=== PATIENT | male | born 1980 | race Caucasian/White ===

== ENCOUNTER → 2016-10-17 | Outpatient (CLI) | payer MEDICARE ==
[~2016-10-17] MED LIST: CHOL10003 PO; HYDR-3812 PO; INSULIN PUMP SQ; LISI10TA2 PO; MAGN400T39 PO; OMG1KC PO
--- OUTSIDE RECORDS SUMMARY | 2016-10-17 15:57 | XMS REPORT | Continuity of Care Document ---
Author Author [facility] Organization [facility] Address Unknown Phone Unavailable Care Team Providers Care Marine Resource Economist Name Role Phone ABBIE ARROYO DO PCP Insurance Providers Payer Name Policy Number Subscriber Name Relationship [employer] [id number] Jeff Moore Ii 18 Self / Same As Patient Advance Directives Directive Response Recorded Date/Time Advance Directives No 03/08/16 5:15pm Organ Donor No 03/08/16 5:15pm Resuscitation Status Full Code 03/08/16 5:15pm Chief Complaint and Reason for Visit Chief Complaint Glucose Problems Reason for Visit Heat exhaustion Volume depletion Problems Active Problems Medical Problem Onset Date Status Heat exhaustion Unknown Acute Volume depletion Unknown Acute Medications Current Home Medications Medication Dose Units Route Directions Days/Qty Instructions Start Date Lisinopril 10 Mg 10 Mg Oral Daily 09/07/15 Magnesium Oxide 400 Mg 400 Mg Oral Daily 09/07/15 [place] 3 Polyunsat Fatty Acids 1,000 Mg 1,000 Mg Oral Daily 09/07/15 Cholecalciferol (Vitamin D3) 1,000 Unit 1,000 Unit Oral Daily [Insulin Pump] 0 Sub-Q As Directed 09/07/15 Hydrocodone/Acetaminophen 1 Each 1 Tab Oral Every 4HRS as needed for 30 09/10/15 Social History Social History Problem Response Recorded Date/Time Alcohol Use Rarely Uses 03/08/2016 5:15pm Recreational Drug Use No 03/08/2016 5:15pm Recent Foreign Travel No 03/08/2016 5:06pm Recent Infectious Disease Exposure No 03/08/2016 5:06pm Hospitalization with Isolation Denies 03/08/2016 5:06pm Smoking Status Never a Smoker 03/08/2016 5:15pm Do you dip or chew tobacco? Yes 03/08/2016 5:15pm Query Response Start Date Stop Date Smoking Status Never a Smoker Hospital Discharge Instructions No hospital discharge instructions. Plan of Care Discharge Date 03/08/16 6:50pm Disposition 01 HOME, SELF-CARE Condition at Discharge Improved Instructions/Education Provided Dehydration (ED) Heat Exhaustion (ED) Forms Provided Work Release Form Prescriptions See Medication Section Referrals ABBIE ARROYO DO - Primary Care Physician Additional Instructions/Education 1. Drink plenty of fluids 2. Follow up with Dr Arroyo this week. Keep a close eye on your blood sugars checking them at least 3 times per day. 3. Return to ER for any concerns Functional Status No functional status results. Allergies, Adverse Reactions, Alerts No known allergies. Immunizations Name Given Type Date of Influenza Vaccine 07/13/15 Historical Vital Signs Acute Vital Signs Vital Response Date/Time Temperature (Fahrenheit) 98 degrees F (97.6 - 99.5) 03/08/2016 5:06pm Temperature (Calculated Celsius) 36.6696 degrees C (36.4 - 37.5) 03/08/2016 5 :06pm Temperature Source Temporal 03/08/2016 5:06pm Pulse Rate (adult) 76 bpm (60 - 90) 03/08/2016 5:06pm Respiratory Rate 18 bpm (12 - 24) 03/08/2016 5:06pm O2 Sat by Pulse Oximetry 100 % (88 - 100) 03/08/2016 5:06pm Blood Pressure 103/65 mm Hg 03/08/2016 5:06pm Blood Pressure Mean 78 mm Hg 03/08/2016 5:06pm Pain Numeric Pain Scale 0-No Pain 03/08/2016 5:06pm Height (Feet) 5 feet 03/08/2016 5:06pm Height (Inches) 6 inches 03/08/2016 5:06pm Height (Calculated Centimeters) 167.919438 cm 03/08/2016 5:06pm Weight (Pounds) 140 pounds 03/08/2016 5:06pm Weight (Calculated Kilograms) 63.390418 kilograms 03/08/2016 5:06pm Height 5 ft 6 in Weight 140 lb Body Mass Index 22.6 kg/m^2 Results Laboratory Results Test Name Result Units Flags Reference Collection Date/Time Result Date/ Time Comments White Blood Count 8.5 10^3/uL 4.3-11.0 03/08/2016 5:pm 03/08/2016 5: 35pm Red Blood Count 4.88 10^6/uL 4.35-5.85 03/08/2016 5:03/08/2016 5: 35pm Hemoglobin 15.4 G/DL 13.3-17.7 03/08/2016 5:03/08/2016 5:35pm Hematocrit 43 % 40-54 03/08/2016 5:03/08/2016 5:35pm Mean Corpuscular Volume 89 FL 80-99 03/08/2016 5:03/08/2016 5: 35pm Mean Corpuscular Hemoglobin 32 PG 25-34 03/08/2016 5:03/08/2016 5: 35pm Mean Corpuscular Hemoglobin Concent 36 G/DL 32-36 03/08/2016 5: 5:35pm Red Cell Distribution Width 12.6 % 10.0-14.5 03/08/2016 5:2015 5:35pm Platelet Count 371 10^3/uL 130-400 03/08/2016 5:03/08/2016 5:35pm Mean Platelet Volume 9.2 FL 7.4-10.4 03/08/2016 5:03/08/2016 5: 35pm Neutrophils (%) (Auto) 68 % 42-75 03/08/2016 5:03/08/2016 5:35pm Lymphocytes (%) (Auto) 24 % 12-44 03/08/2016 5:03/08/2016 5:35pm Monocytes (%) (Auto) 8 % 0-12 03/08/2016 5:03/08/2016 5:35pm Eosinophils (%) (Auto) 0 % 0-10 03/08/2016 5:03/08/2016 5:35pm Basophils (%) (Auto) 1 % 0-10 03/08/2016 5:24pm 03/08/2016 5:35pm Neutrophils # (Auto) 5.7 X 10^3 1.8-7.8 03/08/2016 5:24pm 03/08/2016 5: 35pm Lymphocytes # (Auto) 2.0 X 10^3 1.0-4.0 03/08/2016 5:24pm 03/08/2016 5: 35pm Monocytes # (Auto) 0.6 X 10^3 0.0-1.0 03/08/2016 5:24pm 03/08/2016 5: 35pm Eosinophils # (Auto) 0.0 10^3/uL 0.0-0.3 03/08/2016 5:24pm 03/08/2016 5 :35pm Basophils # (Auto) 0.0 10^3/uL 0.0-0.1 03/08/2016 5:24pm 03/08/2016 5: 35pm Urine Color YELLOW 03/08/2016 6:00pm 03/08/2016 6:26pm Urine Clarity CLEAR 03/08/2016 6:00pm 03/08/2016 6:26pm Urine pH 7 5-9 03/08/2016 6:00pm 03/08/2016 6:26pm Urine Specific [place] 1.010 * 1.016-1.022 03/08/2016 6:00pm 2015 6:26pm Urine Protein NEGATIVE NEGATIVE 03/08/2016 6:00pm 03/08/2016 6:26pm Urine Glucose (UA) 4+ * NEGATIVE 03/08/2016 6:00pm 03/08/2016 6:26pm Urine RBC (Auto) NEGATIVE NEGATIVE 03/08/2016 6:00pm 03/08/2016 6: 26pm Urine Ketones NEGATIVE NEGATIVE 03/08/2016 6:00pm 03/08/2016 6:26pm Urine Nitrite NEGATIVE NEGATIVE 03/08/2016 6:00pm 03/08/2016 6:26pm Urine Bilirubin NEGATIVE NEGATIVE 03/08/2016 6:00pm 03/08/2016 6: 26pm Urine Urobilinogen NORMAL MG/DL NORMAL 03/08/2016 6:00pm 03/08/2016 6: 26pm Urine Leukocyte Esterase NEGATIVE NEGATIVE 03/08/2016 6:00pm 2015 6:26pm Urine RBC NONE /HPF 03/08/2016 6:00pm 03/08/2016 6:26pm Urine WBC NONE /HPF 03/08/2016 6:00pm 03/08/2016 6:26pm Urine Bacteria NONE /HPF 03/08/2016 6:00pm 03/08/2016 6:26pm Urine Squamous Epithelial Cells 0-2 /HPF 03/08/2016 6:00pm 2015 6:26pm Urine Crystals NONE /LPF 03/08/2016 6:00pm 03/08/2016 6:26pm Urine Casts NONE /LPF 03/08/2016 6:00pm 03/08/2016 6:26pm Urine Mucus NEGATIVE /F 03/08/2016 6:00pm 03/08/2016 6:26pm Urine Culture Indicated NO 03/08/2016 6:00pm 03/08/2016 6:26pm Sodium Level 138 MMOL/L 135-145 03/08/2016 5:24pm 03/08/2016 6:05pm Potassium Level 4.0 MMOL/L 3.6-5.0 03/08/2016 5:24pm 03/08/2016 6:05pm Chloride Level 103 MMOL/L 98-107 03/08/2016 5:24pm 03/08/2016 6:05pm Carbon Dioxide Level 27 MMOL/L 21-32 03/08/2016 5:pm 03/08/2016 6: 05pm Anion Gap 8 MMOL/L 5-14 03/08/2016 5:24pm 03/08/2016 6:05pm Blood Urea Nitrogen 14 MG/DL 7-18 03/08/2016 5:pm 03/08/2016 6:05pm Creatinine 1.77 MG/DL H 0.60-1.30 03/08/2016 5:pm 03/08/2016 6:05pm BUN/Creatinine Ratio 8 03/08/2016 5:pm 03/08/2016 6:05pm Estimat Glomerular Filtration Rate 44 03/08/2016 5:03/08/2016 6:05pm GFR INTERPRETIVE DATA UNITS FOR ESTIMATED GFR (eGFR): mL/min/1.73 M2 REFERENCE RANGE FOR ESTIMATED GFR (eGFR) eGFR NORMAL eGFR >60 MODERATELY DECREASED eGFR 30-59 SEVERLY DECREASED eGFR 15-29 KIDNEY FAILURE <15 (OR DIALYSIS) Glucose Level 170 MG/DL H 70-105 03/08/2016 5:24pm 03/08/2016 6:05pm Glucometer 153 MG/DL H 70-110 03/08/2016 5:23pm 03/08/2016 5:38pm Calcium Level 9.8 MG/DL 8.5-10.1 03/08/2016 5:24pm 03/08/2016 6:05pm Total Bilirubin 0.7 MG/DL 0.1-1.0 03/08/2016 5:24pm 03/08/2016 6:05pm Alkaline Phosphatase 62 U/L 40-136 03/08/2016 5:24pm 03/08/2016 6:05pm Aspartate Amino Transf (AST/SGOT) 21 U/L 5-34 03/08/2016 5:24pm 2015 6:05pm Alanine Aminotransferase (ALT/SGPT) 19 U/L 0-55 03/08/2016 5:24pm 03/08 6:05pm Total Protein 7.0 G/DL 6.4-8.2 03/08/2016 5:24pm 03/08/2016 6:05pm Albumin 4.7 G/DL H 3.2-4.5 03/08/2016 5:24pm 03/08/2016 6:05pm Procedures No known history of procedures. Encounters Encounter Location Arrival/Admit Date Discharge/Depart Date Attending Provider Departed Emergency Room [facility] 03/08/16 5:07pm 03/08 6:50pm DUSTIN EDMONDSON APRN Recent Diagnosis
--- NOTE | 2016-10-17 17:04 | Diagnostic Imaging Report ---
PROCEDURE: MRI right joint lower extremity without contrast. TECHNIQUE: Multiplanar, multisequence non contrast-enhanced MRI of the right lower extremity was accomplished. INDICATION: Right knee pain. FINDINGS: There is trace suprapatellar effusion. There is a Boyd's cyst measuring 2 x 1.8 cm and extends craniocaudally by 4.3 cm. There is surrounding small amount of fluid suggestive of leakage. The extensor mechanism is intact. The ACL and the PCL appear intact. There is a complex tear involving the posterior horn of the medial meniscus with absent, presumably displaced meniscus fragment into the central aspect of the joint along the medial aspect of the intercondylar notch. This is best seen on coronal images around image 15 with a meniscus displaced torn fragment suspected seen inferior to the tibial attachment of the PCL. The meniscus tear has extension into the body of the meniscus, and there is question of extension into the posterior root. The anterior horn appears intact. The lateral meniscus demonstrates no significant tear. The MCL and the lateral collateral ligament complex appear intact. There is no significant marrow signal abnormality. The joint cartilage demonstrates about 25% thinning in the medial compartment. Normal cartilage thickness in the lateral and patellofemoral compartments seen. IMPRESSION: 1. Complex medial meniscus tear involving the posterior horn and the lateral meniscus with suggestion of a small displaced torn meniscal fragment into the intercondylar notch. 2. Leaking Boyd's cyst. 3. Mild cartilage thinning in the medial compartment. Dictated by: Dictated on workstation # [id number]
== END ==
LOC: RAD 15:54
PROVIDERS: ATTEND Internal Medicine
DX: S83.231A Complex tear of medial meniscus, current injury, right knee, initial encounter (principal); S83.271A Complex tear of lateral meniscus, current injury, right knee, initial encounter; M66.0 Rupture of popliteal cyst; M25.361 Other instability, right knee; X58.XXXA Exposure to other specified factors, initial encounter; Y99.8 Other external cause status
CPT/HCPCS: 73721

== ENCOUNTER → 2020-12-31 | Outpatient (CLI) | payer MEDICARE ==
[~2020-12-31] MED LIST changes: +ACHD5005 PO; -HYDR-3812 PO; -LISI10TA2 PO; +LISI10TA25 PO
--- NOTE | 2020-12-31 16:57 | Diagnostic Imaging Report ---
INDICATION: Lump on right scapula area. FINDINGS: AP and lateral views of the soft tissues in the area in question were performed. There is a solid heterogeneous lesion in the soft tissues in the area in question measuring 4.3 x 1.3 x 3.9 cm. The lesion is not cystic. This may represent a lipoma although the sonographic appearance is nonspecific and other lesions are in the differential. Consider CT or MRI for further evaluation. IMPRESSION: 4.3 x 1.3 x 3.9 cm noncystic heterogeneous lesion in the soft tissues in the area in question. The sonographic appearance is nonspecific, consider correlation with CT or MRI. Dictated by: Dictated on workstation # [id number]
== END ==
LOC: RAD 13:36
PROVIDERS: ATTEND Nurse Practitioner Family
DX: R22.31 Localized swelling, mass and lump, right upper limb (principal)
CPT/HCPCS: 76881

== ENCOUNTER 2021-02-01 06:26 | Outpatient (CLI) | payer MEDICARE ==
[~2021-02-01] VITALS: Ht 165.1 cm; Wt 73.0 kg
[2021-02-01] MEDS ORDERED: LORA10TA76 PO (13:16)
[2021-02-01] MEDS ORDERED: NOVOLOG U (13:16)
[2021-02-01] MEDS ORDERED: MONT10TA32 PO (13:16)
== END 2021-02-01 13:24 | disposition home or self-care (01) ==
LOC: PREOP 06:26
PROVIDERS: ATTEND Surgery
DX: Z01.818 Encounter for other preprocedural examination (principal)

== ENCOUNTER 2021-02-04 09:55 | Day surgery (SDC) | payer MEDICARE ==
[~2021-02-04] VITALS: Ht 165 cm; Wt 73.0 kg
[2021-02-04] VITALS (8 sets, daily range): BP systolic 106–133; BP diastolic 66–83
[~2021-02-04 09:55] MED LIST changes: +LORA10TA76 PO; +MONT10TA32 PO; +NOVOLOG U
[2021-02-04] MEDS ORDERED: LIDOCAINE/EPI 1%-1:200,000 (XYLOCAINE) 30 ML VIAL ONE (10:09)
[2021-02-04] MEDS ORDERED: ceFAZolin INJECTION 1,000 MG ONE (10:22)
[2021-02-04] MEDS ORDERED: ceFAZolin INJECTION 1,000 MG in WATER (STERILE) FOR INJECTION 10 ML IV ONE (10:30)
[2021-02-04] MEDS: LACTATED RINGERS 1,000 ML IV PRN ×2 (10:37→11:56)
--- NOTE | 2021-02-04 10:38 | Progress Note-Pre Operative ---
Pre-Operative Progress Note H&P Reviewed The H&P was reviewed, patient examined and no changes noted. Date Seen by Provider: February 04, 2021 Time Seen by Provider: 10:37 Date H&P Reviewed: February 04, 2021 Time H&P Reviewed: 10:37 Pre-Operative Diagnosis: back mass CAM VILLATORO DO February 04, 2021 10:38
[2021-02-04] MEDS ORDERED: DEXTROSE 50% 50 ML (IMS) SYR IV ONE (10:45)
[2021-02-04] MEDS ORDERED: LIDOCAINE PF 2% 5 ML (XYLOCAINE) VIAL ONE (11:15)
[2021-02-04] MEDS ORDERED: SEVOFLURANE (ULTANE) 15 ML INHAL SOLN ONE (11:15)
[2021-02-04] MEDS ORDERED: ONDANSETRON 4 MG/2 ML (SDV) Z0FRAN ONE (11:15)
[2021-02-04] MEDS ORDERED: proPOfol 200 MG/20 ML (DIPRIVAN) VIAL IV ONE (11:15)
[2021-02-04] MEDS ORDERED: MIDAZOLAM 2 MG/2 ML (VERSED) VIAL ONE (11:16)
[2021-02-04] MEDS ORDERED: fentaNYL INJ 100 MCG/2 ML AMP ONE (11:16)
[2021-02-04] MEDS ORDERED: ACHD5005 PO (12:17)
--- NOTE | 2021-02-04 12:17 | Progress Note-Post Operative ---
Post-Operative Progess Note Surgeon (s)/Steam Conditioner Operator (s) Surgeon CAM VILLATORO DO Steam Conditioner Operator: NA Pre-Operative Diagnosis back mass Post-Operative Diagnosis SAME Procedure & Operative Findings Date of Procedure 02/04/21 Procedure Performed/Findings excision back mass Anesthesia Type general Estimated Blood Loss Estimated blood loss (mL): minimal Specimens/Packing Specimens Removed back mass CAM VILLATORO DO February 04, 2021 12:17
--- NOTE | 2021-02-04 12:18 | Discharge Inst-Simple/Standard ---
Discharge Inst-Standard Discharge Medications New, Converted or Re-Newed RX: RX on Chart Patient Instructions/Follow Up Plan of Care/Instructions/FU: 2 weeks Uriel Activity as Tolerated: Yes Discharge Diet: Regular Diet CAM VILLATORO DO February 04, 2021 12:18
[2021-02-04] MEDS ORDERED: ONDANSETRON 4 MG/2 ML (SDV) Z0FRAN IVP PRN (12:30)
[2021-02-04] MEDS ORDERED: morphine INJ 10 MG/ML 1ML (SYR OR VIAL) IVP ONE (12:30)
--- NOTE | 2021-02-04 12:59 | Anesthesia-General Post-Op ---
General Patient Condition Mental Status/LOC: Same as Preop Cardiovascular: Satisfactory Nausea/Vomiting: Absent Respiratory: Satisfactory Pain: Controlled Complications: Absent Post Op Complications Complications None Follow Up Care/Instructions Patient Instructions None needed. Anesthesia/Patient Condition Patient Condition Patient is doing well, no complaints, stable vital signs, no apparent adverse anesthesia problems. SNOW MAN DO February 04, 2021 12:59
--- NOTE | 2021-02-04 19:46 | OPERATIVE REPORT ---
DATE OF SERVICE: 02/04/2021 PREOPERATIVE DIAGNOSIS: Back mass. POSTOPERATIVE DIAGNOSIS: Back mass. PROCEDURE: Excision of back mass 6.5 x 4 x 1.8 cm. SURGEON: Cam Trevino DO ANESTHESIA: General. ESTIMATED BLOOD LOSS: Minimal. COMPLICATIONS: None. INDICATIONS: The patient is a 40-year-old male with a back mass increasing in size causing some slight discomfort. He understands risks and benefits of procedure and wished to proceed with procedure. Consent was signed in the chart. DESCRIPTION OF PROCEDURE: The patient was taken to the operating suite, was placed in left lateral recumbent position. Timeout was performed. Local anesthetic was infiltrated. A 15-blade scalpel was used to make a skin incision over the palpable mass. Cautery was then used to dissect around the palpable mass along with blunt dissection. The mass was able to be dissected off of the musculature and removed in its entirety. The wound was then irrigated. Hemostasis was achieved. The skin was then closed using harshil. The patient tolerated procedure well without any complications. He was taken to recovery room in stable condition. Job ID: [id number] DocumentID: [id number] Dictated Date: 02/04/2021 14:50:10 Technical Service Rep Date: 02/04/2021 19:45:28 Dictated By: CAM TREVINO DO
== END 2021-02-04 13:35 | disposition home or self-care (01) ==
LOC: SDC 09:55
PROVIDERS: ATTEND Surgery
DX: R22.2 Localized swelling, mass and lump, trunk (principal); G47.33 Obstructive sleep apnea (adult) (pediatric); K21.9 Gastro-esophageal reflux disease without esophagitis; E11.9 Type 2 diabetes mellitus without complications; Z79.899 Other long term (current) drug therapy; Z87.891 Personal history of nicotine dependence
CPT/HCPCS: 82947; 87081; 88304